=== PATIENT | female | born 2000 | race Caucasian/White ===

== ENCOUNTER 2024-12-03 00:57 | Inpatient (IN) ==
--- NOTE | 2024-12-03 05:55 | Delivery Summary ---
Vaginal Delivery Summary Date of Service December 03, 2024 Vaginal Delivery Summary 24yo at 40+wks domi presented to LD with concern for labor and over 2hr remained 2cm, then her pain escalated and upon recheck was notably 10cm with bulging membranes. She was screaming with ctx and ultimately was ready to proceed with arom and second stage. She was readied for delivery. AROM for thin meconium. Began pushing effectively when able to focus. Pushed to deliver viable male apgars 8.9 via over partial 3rd degree perineal laceration. Shoulders and body delivered rapidly thereafter. Body cord noted, delivered through. Mouth and nose bulb suctioned. Infant vigorous and crying at . Cord clamped at 30 seconds of life and infant to maternal abdomen where the cord was then doubly clamped and cut. Placenta delivered spontaneously and intact, three-vessel cord. Hemostasis achieved with IM pitocin and uterine massage. Cervix and sulci intact. QBL 122 cc. Partial 3rd degree laceration repaired in layers with 2-0 and 3-0 vicryl after 1% local lidocaine anesthesia. Given some ongoing gushing and no iv access, rectal cytotec 1000mcg placed. Mother and baby stable in recovery. Asked iv team to come obtain iv access.
[2024-12-03] MEDS ORDERED: LIDOCAINE 1% LOCAL 20 ML VIAL INFIL PRN (06:03)
[2024-12-03] MEDS ORDERED: OXYTOCIN 30 UNITS/NSS 30 UNITS/500 ML BAG IV PRN ×2 (06:03→06:26)
[2024-12-03] MEDS ORDERED: IBUPROFEN 600 MG TAB PO PRN (06:26)
[2024-12-03] MEDS ORDERED: HYDROCORTISONE ACETATE 25 MG SUPP PR PRN (06:26)
[2024-12-03] MEDS ORDERED: oxyCODONE/ACETAMINOPHEN 5mg/325mg TAB PO PRN (06:26)
[2024-12-03 06:38] LABS: Hematocrit (blood only) 32.5 % (37.0-47.0); Hemoglobin 10.7 g/dl (12.0-16.0); Mean Corpuscular Hemoglobin 25.6 pg (25.0-34.0); Mean Corpuscular Hgb Conc 32.9 g/dL (32.0-36.0); Mean Corpuscular Volume 77.8 fL (80.0-100.0); Mean Platelet Volume 9.5 fL (9.4-12.4); Platelet Count 328 K/uL (130-400); RDW Coefficient of Variation 14.9 % (11.5-14.5); Red Blood Count 4.18 M/uL (4.20-5.40); White Blood Count 16.69 K/ul (4.8-10.8)
[2024-12-03] MEDS: OXYTOCIN 10 UNITS/ML VIAL IM ONE (06:41)
[2024-12-03] MEDS: DIPHTHER/TETAN/PERTUS Vaccine (Tdap, Adol/Adult) 0.5mL IM ONE (06:42)
[2024-12-03] MEDS: miSOPROStoL 200 MCG TAB PR ONE (06:45)
[2024-12-03] MEDS: LEVOTHYROXINE SODIUM 75 MCG TABLET PO SCH (06:45)
[2024-12-03] MEDS: BENZOCAINE 20% SPRY 85 APPLN/85 GM CAN EXT PRN (06:45)
[2024-12-03] MEDS: PRENATAL VITAMIN 1 TAB PO SCH (07:58)
[2024-12-03] MEDS: DOCUSATE SODIUM 100 MG CAP PO SCH (07:58)
[2024-12-03] MEDS ORDERED: Nursing to Pharmacy Communication SCH (08:30)
[2024-12-03] MEDS ORDERED: PANTOprazole 40 MG TAB PO SCH (09:00)
[2024-12-03] MEDS: ACETAMINOPHEN 325 MG TAB PO PRN (09:41)
[2024-12-03] MEDS: CALCIUM CARBONATE 500 MG CHEWABLE TAB PO PRN (12:04)
[2024-12-03] MEDS: PANTOprazole 40 MG TAB PO SCH (20:36)
[2024-12-04] MEDS: OXYTOCIN 10 UNITS/ML VIAL ONE (00:35)
[2024-12-04 07:46] VITALS: BP 111/76; PULSE 79; RESP 16; TEMP 97.5; O2SAT 98
--- NOTE | 2024-12-04 08:19 | Obstetrical Progress Note ---
Date of Service December 04, 2024 day #1 patient is doing well minimal bleeding or pain no depression no calf tenderness wishes discharge home later Assessment & Plan (1) Vaginal discharge during : Meets discharge criteria plan later today Physical Exam Constitutional WD/WN, vitals as above well developed and well nourished Respiratory normal respiratory effort, lungs clear to auscultation normal respiratory effort Cardiovascular RRR, no murmur, no edema Gastrointestinal (Abdomen) normal bowel sounds, soft, nontender, no hepatosplenomegaly Results & Data Vital Signs (Past 12 Hours) Vital Signs Temp Pulse Resp BP Pulse Ox O2 Del Method 12/04/24 07:11 97.5 F L 79 16 111/76 98 Room Air 12/04/24 03:12 98.1 F 92 H 18 113/76 97 Room Air 12/04/24 00:05 98.4 F 94 H 20 96/57 L 97 Room Air
[2024-12-04] MEDS ORDERED: bisacodyL 5 MG TABEC PO SCH (20:00)
== END 2024-12-04 14:15 | disposition home or self-care (01) | DRG 768 ==
LOC: OPB 00:57 → 4S1 01:07 → 4E2 08:24